=== PATIENT | female | born 1935 | race Caucasian/White ===

== ENCOUNTER 2017-09-09 11:09 | Inpatient (IN) | payer MEDICARE ==
[~2017-09-09] VITALS: Ht 160 cm; Wt 79.5 kg
[2017-09-09] VITALS (21 sets, daily range): BP systolic 72–118; BP diastolic 37–89
[~2017-09-09 11:09] MED LIST: CIPRO500 MG OR; DIGITEK0.25 MG OR; DOXYCYC MONO100 MG OR; ENALAPRIL10 MG OR
--- NOTE | 2017-09-09 11:30 | NUR ---
PATIENT TO ROOM VIA WHEELCHAIR AND PHYSICIAN AT BEDSIDE FOR EVALUATION
[2017-09-09 11:56] LABS: HEMATOCRIT 41.6 % (37.0-47.0); HEMOGLOBIN 12.5 g/dl (12.0-16.0); MEAN CELL VOLUME 95.2 fL CALC (80.0-100.0); MEAN CORPUSCULAR HGB 28.6 pG CALC (26.0-32.0); NEUT# 9.24 thou/uL (2.00-7.15); RED BLOOD COUNT 4.37 mill/uL (4.20-5.60); RED CELL DISTRI WIDTH 14.2 % (11.5-15.5)
[2017-09-09 12:33] LABS: ALBUMIN 3.7 g/dL (3.2-5.0); BILIRUBIN, TOTAL 0.6 mg/dL (0.0-1.4); CALCIUM 8.7 mg/dL (8.4-10.2); CREATININE 1.1 mg/dL (0.5-1.0); POTASSIUM 4.7 mmol/l (3.5-5.1); TOTAL PROTEIN 6.7 g/dL (6.3-8.2)
--- NOTE | 2017-09-09 13:10 | NUR ---
PT RETURNED FROM RADIOLOGY AWAITING CT RESULTS. BI PAP CONTINUES.
--- NOTE | 2017-09-09 14:20 | NUR ---
PT INTUBATED 7.5 24 AT LIP POSITIVE COLOR CHANGE.
--- NOTE | 2017-09-09 15:00 | NUR ---
BP 84/54 PT IN [place]. PROPOFOL STOPPED. ORDER FOR NOREPINEPHRINE RECD
--- NOTE | 2017-09-09 15:04 | NUR ---
SBAR PRINTED TO FLOOR
--- NOTE | 2017-09-09 16:16 | NUR ---
S: MELITON STUBBS is a 82 F who presents with acute respiratory failure She has a history of HTN, Irregular heartbeat, hard of hearing, lung CA, Afib. All medications in patient's chart were reviewed. O: VS: BP 149/70, P 89, RR 26,T 98.4 W 45.5kg, HT 58 inch, Scr= 1.1,CrCl= 40 ml/min A: P: Patient is on Aztreonam 1 gram IV q8h. Vancomycin ordered for pharmacy to dose. Start Vancomycin 1.25 gram IV Q24H at 16:30. Vancomycin trough is drawn before the 4th dose on 09/12/2017 at 16:00 Vancomycin goal trough is between 10-15 mcg/ml. Pharmacy will follow and or advise on antibiotics use as needed.
--- NOTE | 2017-09-09 16:34 | NUR ---
PT REMAINS ON PROPOFOL AND LEVOPHED PT SUPINE. BP STABILIZED AT 111/71 SYSTOLIC THRESHOLD >100. INTUBATION CONTINUES.
--- NOTE | 2017-09-09 17:17 | NUR ---
PT TO ICU VIA STRETCHER. IV SITE TO PORT AND RAC PATENT. LEVOPHED/PROPOFOL/VANCO/FLUIDS CONTINUED. PT INTUBATED AND BAGGED.
--- NOTE | 2017-09-09 17:45 | NUR ---
PT ARRIVED TO THE FLOOR WITH 2 PERSON ASSISTANCE FROM THE ER AND RT. FOR AIRWAY MAINTENANCE. PT ASSISTED WITH 4 PERSON ASSISTANCE, VENT SETTINGS SEE RT LOG. PT IS AWAKE AND LOOKING AROUND. BP 96/66 SPO2 IS 100%. LEVOPHED AND NS INFUSING THROUGH CHESTWALL PORT. DIPROVAN INFUSING THROUGH RFA #22. PT HAS NO FAMILY AT BS AT THIS TIME. PT PLACED IN SOFT RESTRAINTS, LEFT ARM IS SWOLLEN WITH PICTURE TAKEN IN THE ER. FINGERS ARE SWOLLEN ALSO AND BLUE/WILSON. NOT A KNEW FINDING. RAMIREZ CATHETER DRAINING DARK YELLOW URINE THAT IS CONCENTRATED.
--- NOTE | 2017-09-09 18:00 | NUR ---
ORAL GASTRIC TUBE PLACED AT THIS TIME, 12 PRYDEINIG, AUSCILATED WITH POSITIVE GASTRIC SOUNDS, NO ASPIRATE AT THIS TIME WITH SYRINGE. PLACED ON LIWS. PT HOB AT 30 DEGREES. PT AWAKE AND LOOKING AROUND. PROPOFOL INFUSING AT 15 MCG/KG/HR. LEVOPHED @ 4MCG/LG/HR, NS @ 150CC/HR.
--- NOTE | 2017-09-09 18:50 | NUR ---
FAMILY AT DESK, ABLE TO OBTAIN HISTORY FROM FAMILY. FAMILY DENIES LIVING WILL. WHEN ASKED SON (NEXT OF KIN) OF WISHES FOR PT IF HER HEART SHOULD STOP BEATING, WHAT TYPE OF INTERVENTION SHOULD STAFF PERFORM. PER SON "WE WANT EVERYTHING DONE FOR HER, DO WHAT YOU HAVE TO DO TO TRY AND SAVE HER." SON AND [id number] RE-ASSURED THAT EVERY ATTEMPT TO SAVE PATIENT WOULD BE PROVIDED, AND THEY WOULD BE NOTIFIED IF ANY DECLINE IN EVENTS HAPPENED. FAMILY STATES UNDERSTANDING.
[2017-09-09 18:52] LABS: URINE BILIRUBIN - DIPSTICK NEGATIVE (NEGATIVE); URINE BLOOD DIPSTICK TRACE-INTACT (NEGATIVE); URINE COLOR YELLOW; URINE GLUCOSE - DIPSTICK NEGATIVE (NEGATIVE); URINE KETONE NEGATIVE (NEGATIVE); URINE LEUK ESTERASE NEGATIVE (NEGATIVE); URINE NITRITE - DIPSTICK NEGATIVE (Negative); URINE PROTEIN - DIPSTICK 100 mg/dL (NEG-TRACE); URINE SPECIFIC GRAVITY >=1.030; URINE UROBILINOGEN - DIPSTICK 0.2 E.U./dL (0.2)
[2017-09-09 19:06] LABS: URINE CLARITY SL CLOUDY
[2017-09-09 19:07] LABS: URINE AMORPH SEDIMENT MANY hpf (NONE-FEW); URINE RBC 0-2 RBC/hpf (0-5); URINE SQUAMOUS EPITHELIAL CELL FEW EPI/hpf (0-FEW)
--- NOTE | 2017-09-09 19:33 | NUR ---
admission assessment completed at this time; medical hx/information obtained from Ivory (daughter in law) and Juanjo (son); pt noted moderately sedated; arousable to touch/opens eyes when repositioned; pupils reactive; no s/s of pain noted/ no facial grimaces; resp unlabored/ vent; AC mode, 400 TV, 24 rate, 5.0 peep, 60% o2; lungs coarse throughout; skin color wnl; suctioned orally for clear secretions; hr irreg; afib/pvc on monitor; rate noted to drop as low as 38 with spont return to 50s; weak left radial pulse; doppler pedal pulses; 2+ edema noted to ble; generalized edema noted to lower torso, left arm; abd soft/distended with bs present/hernia noted; pino to gravity draining cloudy yellow urine; urometer placed; no bm noted per development writer; og intact to lis; right chest port accessed with ns infusing as per orders/ levophed at 5mcg/min; #22 in rfa patent with diprivan 15mcg/kg/min; no redness or edema noted at sites; fungal rash noted under bilat breast/worse to left breast; wound to coccyx; wound noted to left post arm; see pics on chart; oral care with toothette; scd's placed; repositioned to right side; will continue to monitor
--- NOTE | 2017-09-09 19:55 | NUR ---
bp 72/58, hr 58; levophed titrated as per protocol; will continue to monitor
--- NOTE | 2017-09-09 20:05 | NUR ---
sedated; vent maintained; afib 50s on monitor with occasional drop to low 40s; manual bp 80/52; levophed titrated to 7mcg/min; will continue to monitor closely
--- NOTE | 2017-09-09 21:50 | NUR ---
# 22 started in rfa X 1 attempt for abt therapy; flushed and patent; pt repositioned to left side; oral care with toothette; afib/pvc 50s on monitor; vent maintained with prev settings; o2 sat 100%; will continue to monitor
--- NOTE | 2017-09-09 22:00 | NUR ---
DR Leroy notified per this food writer of bradycardia; MD informed pt afib 40-50s with lowest rate 38; MD informed no IVF ordered; orders/meds reviewed; orders to be placed per MD
--- NOTE | 2017-09-09 22:20 | NUR ---
RT Ochoa notified of Dr Leroy's request to titrated FIO2 down; will continue to monitor
--- NOTE | 2017-09-09 22:45 | NUR ---
FiO2 .28; o2 sat 99%; will continue to monitor
--- NOTE | 2017-09-09 23:50 | NUR ---
Dr Dacosta called this music writer; update given; informed of recent orders per Dr Leroy;
[2017-09-10] VITALS (98 sets, daily range): BP systolic 74–166; BP diastolic 39–81
--- NOTE | 2017-09-10 00:02 | NUR ---
pt lightly sedated; no distress noted; vent maintained; resp unlabored; o2 sat 99%; iv patent; no redness or edema noted at site; diprivan cont at 15mcg/kg/min; levophed cont at 7mcg/min; pino to gravity draining clear yellow urine; restraints released for nursing care and repositioning; pt repositioned to right side; oral care given; scd's intact; will continue to monitor
--- NOTE | 2017-09-10 01:01 | NUR ---
pt noted in junctional rhythm, hr 46 on monitor
--- NOTE | 2017-09-10 01:12 | NUR ---
isai Dodson called this time; passcode verified; update provided
--- NOTE | 2017-09-10 02:05 | NUR ---
lightly sedated; vent maintained; pino to gravity draining well; iv patent; diprivan at 25mcg/kg/min; levophed cont at 3 mcg/min; no redness or edema noted at sites; repositioned to left side; oral care given; scd's intact; restraints released for nursing care/rom and reapplied; will continue to monitor
--- NOTE | 2017-09-10 02:30 | NUR ---
bp 79/44; levophed titrated; diprivan decreased;
--- NOTE | 2017-09-10 02:51 | NUR ---
idioventricular rhythm on monitor; hr 44;
--- NOTE | 2017-09-10 03:55 | NUR ---
orders received from Dr Leroy to draw am labs d/t rhythm changes
--- NOTE | 2017-09-10 04:05 | NUR ---
resting with eyes closed; am labs obtained as per MD orders; afib/pvc on monitor; hr 42; pino to gravity; levophed cont at 6mcg/min; diprivan cont at 15 mcg/kg/min; no redness or edema noted at site; restraints released and reapplied after nursing care; repositioned to right side; vent maintained; will continue to monitor
[2017-09-10 04:31] LABS: ANION GAP 11 (6-22 (CALC)); BUN 46 mg/dL (8-23); BUN/CREATININE RATIO 58 (12-20 (CALC)); CALCIUM 8.2 mg/dL (8.4-10.2); CARBON DIOXIDE 28 mmol/l (22-30); CHLORIDE 105 mmol/l (95-108); CREATININE 0.8 mg/dL (0.5-1.0); GFR > 60 ML/MIN (>=60 (CALC)); GFR FOR AFR.AMER. > 60 ML/MIN (>=60 (CALC)); GLUCOSE 171 mg/dL (82-115); MAGNESIUM 2.2 mg/dL (1.6-2.3); POTASSIUM 3.5 mmol/l (3.5-5.1); SODIUM 140 mmol/l (137-146)
--- NOTE | 2017-09-10 05:05 | NUR ---
xray at bedside
[2017-09-10 05:19] LABS: HEMATOCRIT 33.5 % (37.0-47.0); HEMOGLOBIN 10.9 g/dl (12.0-16.0); MEAN CELL VOLUME 89.6 fL CALC (80.0-100.0); MEAN CORPUSCULAR HGB 29.1 pG CALC (26.0-32.0); MEAN CORPUSCULAR HGB CONC 32.5 g/L CALC (32.0-36.0); RED BLOOD COUNT 3.74 mill/uL (4.20-5.60)
--- NOTE | 2017-09-10 05:20 | NUR ---
weaning of Levophed in progress; diprivan titrated to 10mcg/kg/min for target Rass of 0 as per MD request; pt remains lightly sedated/ easily aroused with periods of restlessness
--- NOTE | 2017-09-10 06:07 | NUR ---
resting with eyes closed; resp unlabored; vent maintained; o2 sat 100%; pino to gravity; afib/pvc 50s on monitor; iv's patent; no redness or edema noted at sites; levophed weaned as per orders; trinidad-synphrine infusing at 0.5mcg/kg/min; diprivan at 10mcg/kg/min; repositioned to left side; hob elevated; og clamped d/t potassium administation; bed in lowst position;
--- NOTE | 2017-09-10 07:25 | NUR ---
PT RESTING IN BED, INTUBATED / SEDATED SEE FLOWSHEET FOR DETAILS, SEDATION IS MAINTAINED WITH RASS SCALE OF 0, LUNGS COARSE WITH COPIUS CLEAR ORAL SECRETIONS NOTED, ORAL CARE PROVIDED, RT REPOSITIONED TUBE EARLIER, TO PREVENT MUCOUSAL BREAKDOWN. ABDOMINAL HERNIA NOTED, WITH ACTIVE BS, OG TO LIS (CLAMPED AT THIS TIME R/T MEDICATION ADMINISTRATION) SKIN IS DRY WITH SCALY PATCHES UNDER BREASTS, IN EARS, IN GROIN FOLDS, PT BATHED AND SKIN CLEANSED WELL AND PATTED DRY, PT ALSO HAS INVERTED NIPPLE NOTED ON R BREAST, RAMIREZ INTACT DRAINING CLEAR YELLOW URINE IN ADEQUATE AOUNTS, CATH STRAP SECURE, TELE READING A FIB RATE 60'S PT ON DIPROVAN FOR SEDATION WITH RASS OF 0 PT OPENS EYES WITH MINIMAL STIMULI, SOFT WRIST RESTRAINTS IN PLACE BILATERALLY TO PREVENT SELF EXTUBATION, COMFORT MEASURES PROVIDED, WILL BATH AND CHANGE LINENS, CALL ANAND WITHIN REACH, EASILY VISIBLE FROM NURSES STATION FOR SAFETY, WILL CONTINUE TO MONITOR.
--- NOTE | 2017-09-10 08:15 | NUR ---
NG BACK TO LIS, PT BATHED AND LINENS CHANGED ORAL CARE PROVIDED AND PT REPOSIONED, SCD'S REMAIN ON DEYVI;ATERAL LE, AND BILATERAL HEELS ELEVATED FOR PRESSURE OFFLOADING, TELE CONTINUES TO READ A FIB RATE FLUCAUATES FROM 36-60'S, NOTIFIED, BP MAINTAINED ON NEOPYNEPHRINE GTT, O2 SATS MAINTAINED VIA VENT SEE FLOWSHEET FOR SETTINGS, CALL ANAND WITHIN REACH, WILL CONTINUE TO MONITOR.
[2017-09-10] MEDS ORDERED: ASPIRIN ADULT L81 M2 PO (08:36)
[2017-09-10] MEDS ORDERED: ESCITALOPRAM OX10 MG PO (08:37)
[2017-09-10] MEDS ORDERED: FENTANYL50 MCG/HR TD (08:37)
[2017-09-10] MEDS ORDERED: LORTAB 5/3255 MG PO (08:37)
[2017-09-10] MEDS ORDERED: DIGOXIN0.125 MG PO (08:38)
[2017-09-10] MEDS ORDERED: LISINOPRIL10 MG PO (08:38)
[2017-09-10] MEDS ORDERED: MAXZIDE-25MG1 COMBO PO (08:38)
--- NOTE | 2017-09-10 09:20 | NUR ---
SPOKE WITH VIA PHONE
--- NOTE | 2017-09-10 09:20 | NUR ---
DR.RAJIHA BECKETT OF BRADYCARDIA RATE 35-45
--- NOTE | 2017-09-10 10:13 | NUR ---
FAMILY AT BEDSIDE SPOKE WITH THEM REGARDING CURRENT STATUS, AND POTENTIAL TRANSFER TO [facility], THEY ARE AWARE DECISION HAS NOT BEEN MADE YET. ALL QUESTIONS ANSWERED.
--- NOTE | 2017-09-10 11:00 | NUR ---
PT RESTING, NO CHANGES NOTED, TELE READING A FIB RATE 36-50'S WITH SUSTAINED PERIODS OF 36-40 HR, BP STABLE WITH NEOSYNEPHRINE, RESTRAINTS REMAIN IN PLACE TO PREVENT SELF EXTUABTION, REMAINS SEDATED WELL WITH RASS SCORE OF 0, CALL ANAND WITHIN REACH, EASILY VISIBLE FROM NURSES STATION FOR SAFETY
--- NOTE | 2017-09-10 11:53 | NUR ---
PT RESTING, REPOSITIONED, FAMILY MEMBERS REMAIN AT BEDSIDE, IVF, NEOSYNPHRINE AND DIPROVAN CONTINUE ORDERED, CALL ANAND WITHIN REACH, CONTINUES TO HAVE GOOD URINE OUTPUT, CATH STRAP SECURE, SCD'S ON BILATERALLY, TELE CONTINUES READING A FIB RATE 35-50'S, WILL CONTINUE TO MONITOR.
--- NOTE | 2017-09-10 13:00 | NUR ---
FAMILY AT BEDSIDE USING DRY ERASE BOARD BROUGHT FROM HOME, PT DOES APPEAR TO RESPOND APPROPRIATELY WITH FACIAL EXPRESSIONS, AND NODS, VS STABLE CONTINUES ON DIPROVAN, NEOSYNEPHRINE AND IVF, CALL ANAND WITHIN REACH.,
--- NOTE | 2017-09-10 14:17 | NUR ---
PT RESTING WITH EYES CLOSED TELE CONTINUES TO READ A FIB RATE FLUCUATES 36-65, BP MAINTAINED WITH NEOSYNEPRHINE GTT, WILL CONTINUE TO MONITOR
--- NOTE | 2017-09-10 14:43 | NUR ---
CONTINUE TO WEAN NEOSYNEPRHINE, BP MAINTAINED SEE INTERVENTIONS, RESTRAINTS REMAIN IN PLACE TO PREVENT SELF EXTUBATION.
--- NOTE | 2017-09-10 16:07 | NUR ---
PT RESTING, REPOSITIONED FOR COMFORT, CONTINUES TO HAVE COPIUS CLEAR ORAL SECRETIONS, BILATERAL HEELS ELEVATED
--- NOTE | 2017-09-10 17:22 | NUR ---
PT RESTING, REPOSITIONED, ORAL SECRETIONS CONTINUE, GOWN CHANGED AND SKIN CARE PROVIDED, WILL CONTINUE TO MONITOR, NO BM THIS SHIFT, RAMIREZ INTACT CONTINUES TO HAVE GENERALZED EDEMA, CALL ANAND WITHIN REACH
--- NOTE | 2017-09-10 17:58 | NUR ---
FAMILY MEMBERS BACK AT BEDSIDE, BP MAINTAINED, HR CONTINUES TO FLUCUATE 46-60, WILL CONTINUE TO MONITOR.
--- NOTE | 2017-09-10 19:00 | NUR ---
pt sedated; family at bedside; updated on plan of care/ pt condition; will continue to monitor
--- NOTE | 2017-09-10 20:00 | NUR ---
assessment completed at this time; pt sedated but arousable; no distress noted; no s/sx of pain; resp unlabored; vent intact with settings of: AC, 400 TV, 20 rate, 5 peep, 28% FiO2; lungs coarse; skin color wnl; o2 sat 100%; orally and ET suctioned per RT; hr irreg; strong pulses; 2+ edema noted to ble/left arm/hips/torso; afib/pvc 40s on monitor; abd soft/distended with bs present; no bm noted per service writer; og intact to lis with greenish/brown gastric contents noted; oral care with toothette; large amount of clear secretions noted; pino to gravity draining clear yellow urine; cath strap intact; pino care performed; right chest port accessed with LR infusing as per orders/ trinidad-synepherine at 15mcg/min (0.375mcg/kg/min); #22 in rfa with diprivan infusing at 20mcg/kg/min; #22 in rfa saline locked; all sites flushed and patent; no redness or edema noted; dressing cdi to left post arm; 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
--- NOTE | 2017-09-10 20:06 | NUR ---
PATIENT RECEIVED AT 1815 INTUBATED WITH A TUBE 7.5 AT 23 CM AT THE LIPS. LISTENING TO THE PATIENT BREATH SOUND. IT WAS RHONCHI. SUCTIONED FOR LARGE AMOUNT OF THICK SECRETION CLEAR. ET TUBE STAYS AT MIDLINE OF THE PATIENT [facility]. WILL CONTINUE TO MONITOR THE PATIENT THROUGHTOUT THE SHIFT.
--- NOTE | 2017-09-10 22:00 | NUR ---
sedated; no distress noted; vent maintained; iv's patent; no redness or edema noted at site; afib/pvc 45 on monitor; diprivan and trinidad synepherine continued; pino to gravity; repositioned to right side; oral care performed; all extremities elevated; will continue to monitor
--- NOTE | 2017-09-10 22:25 | NUR ---
Dr Leroy notified in regards to restraint renewal; orders to be placed
[2017-09-11] VITALS (70 sets, daily range): BP systolic 87–139; BP diastolic 43–79
--- NOTE | 2017-09-11 00:01 | NUR ---
pt noted with brief increase in hr (70s) and bp; in to assess pt; pt noted wide awake when staff enters room; slightly anxious/shaking feet and nodding head; diprivan titrated as per protocol to maintained RASS of 0; afib/pvc on monitor; vent maintaind as per previous settings; repositioned to left side; oral care given; pino to gravity; iv's patent; lip balm applied; will continue to monitor
--- NOTE | 2017-09-11 02:00 | NUR ---
resting calmly; no distress noted; vent maintained; pino to gravity; iv patent; propofol and trinidad synepherine cont; repositioned to left side; oral care; og intact; extremities floated; afib 40-50s on monitor; will continue to monitor
--- NOTE | 2017-09-11 04:00 | NUR ---
resting with eyes closed; noted shaking feet; appears restless; no distress noted; vent intact and patent; o2 sat 99%; afib/pvc on monitor; pino to gravity; iv's patent; og intact and patent; repositioned to supine position; oral care performed; restraints released and reapplied for nursing care; will continue to monitor
--- NOTE | 2017-09-11 05:05 | NUR ---
am labs obtained via port
--- NOTE | 2017-09-11 05:30 | NUR ---
pt resting with eyes closed; arousable; no distress noted; complete bed bath, pino care, linen change and oral care completed; repositioned for comfort; afib 42 on monitor; pino to gravity; vvent maintained;
[2017-09-11 05:34] LABS: ANION GAP 9 (6-22 (CALC)); BUN 32 mg/dL (8-23); BUN/CREATININE RATIO 53 (12-20 (CALC)); CALCIUM 7.7 mg/dL (8.4-10.2); CARBON DIOXIDE 26 mmol/l (22-30); CHLORIDE 110 mmol/l (95-108); CREATININE 0.6 mg/dL (0.5-1.0); GFR > 60 ML/MIN (>=60 (CALC)); GFR FOR AFR.AMER. > 60 ML/MIN (>=60 (CALC)); GLUCOSE 138 mg/dL (82-115); MAGNESIUM 2.2 mg/dL (1.6-2.3); POTASSIUM 3.9 mmol/l (3.5-5.1); SODIUM 142 mmol/l (137-146)
[2017-09-11 05:41] LABS: MEAN CORPUSCULAR HGB 28.8 pG CALC (26.0-32.0); MEAN CORPUSCULAR HGB CONC 32.4 g/L CALC (32.0-36.0); RED BLOOD COUNT 3.82 mill/uL (4.20-5.60); RED CELL DISTRI WIDTH 14.3 % (11.5-15.5)
--- NOTE | 2017-09-11 06:04 | NUR ---
resting with eyes closed; vent intact and patent; o2 sat 99%; hob elevated; afib 40s on monitor; pino to gravity; og intact; bilat scd's; iv patent; trinidad-synepherine gtt cont/ diprivan gtt cont; increased redness noted to back during bath/no breakdown to back noted; bed in lowest position;
--- NOTE | 2017-09-11 06:37 | NUR ---
hr sustained 34-39; carotid pulse palpated; diprivan titrated to 25mcg/kg/min; bp 98/43
--- NOTE | 2017-09-11 07:25 | NUR ---
PT RESTING IN BED, REMAINS INTUBATED / SEDATED SEE FLOWSHEET FOR DETAILS, SEDATION IS MAINTAINED WITH RASS SCALE OF -1, -2, LUNGS COARSE WITH COPIUS CLEAR ORAL SECRETIONS NOTED, ORAL CARE PROVIDED, SOME CRACKING NOTED ON LOWER LIP, LIP BALM APPLIED, ABDOMINAL HERNIA NOTED NOT NEW PER FAMILY , LAST BM 09/09/17 PER ADMISSION, PT HAS ACTIVE BS, OG TO LIS WITH MINIMAL ORANGE/BROWN DRAINAGE OUT, SKIN REMAINS DRY WITH SCALY PATCHES UNDER BREASTS, IN EARS, IN GROIN FOLDS, PT BATHED ON PREVIOUS SHIFT PER REPORT, PT ALSO HAS INVERTED NIPPLE NOTED ON R BREAST, RAMIREZ INTACT DRAINING CLEAR YELLOW URINE IN ADEQUATE AMOUNTS, CATH STRAP SECURE, TELE READING A FIB RATE 40'S SUSTAINED AT AT TIMES IN 30'S ( AWARE NOTIFIED BY THIS NURSE ON 09/10/17) LABIAL EDEMA NOTED, SOFT WRIST RESTRAINTS IN PLACE BILATERALLY TO PREVENT SELF EXTUBATION, COMFORT MEASURES PROVIDED, CALL ANAND WITHIN REACH, EASILY VISIBLE FROM NURSES STATION FOR SAFETY, WILL CONTINUE TO MONITOR.
--- NOTE | 2017-09-11 08:20 | NUR ---
PT HR 36 SUSTAINED FOR SHORT PERIODS OF TIME, BP REMAINS STABEL WTIH NEOSYNEPHRINE AT SAME RATE, DIPROVAN REMAINS AT 20 MCG/KG/MIN, SCD'S ON BILATERALLY, IVF CONTINUE, IMPLANTED PORT INTACT IN RIGHT CHEST WALL WITH DRESSING CLEAN DRY AND INTACT.
--- NOTE | 2017-09-11 09:38 | NUR ---
[facility] FAMILY CALLED FOR UPDATE, NO TOHER CHANGES NOTED, URINE OUTPUT MINIMALLY DECREASED, MD AWARE WILL CONTINUE TO MONITOR
--- NOTE | 2017-09-11 09:58 | NUR ---
PT REPOSITIONED FOR COMFORT, FLINCHES WITH MOVEMENT, RESTRAINTS REMAIN IN PLACE TO PREVENT SELF EXTUBATION, CALL ANAND WITHIN REACH, EASILY VISIBLE FROM NURSES STATION FOR SAFETY
--- NOTE | 2017-09-11 10:57 | NUR ---
IN TO SEE PATIENT, AWARE ON CONTINUED SUSTAINED BRADYCARDIA, AND DECREASED URINE OUTPUT WELL INCREASED EDEMA, IVF DECREASED TO KVO PER VERBAL ORDER, CONTINUE TO MONITOR.
--- NOTE | 2017-09-11 12:22 | NUR ---
REPOSITIONED AND MOUTH CARE PROVIDED, SON AT BEDSIDE AT THIS TIME, NEOSYNEPHRINE TITRATED WILL MONITOR TOLERANCE, BILATERAL ARMS/HANDS ELEVATED FOR EDEMA.
--- NOTE | 2017-09-11 14:03 | NUR ---
PT REMAINS SEDATED, BP STABLE WITH MAP MAINTAINED GREATER THAN 65 WITH NEOSYNEPHRINE TITRATION, HR STILL FLUCTUATING CURRENLTY 40'S, SON GONE AT THIS TIME, URINE OUTPUT REMIANS DECREASED, EASILY VISIBLE FROM NURSES STATION, WILL CONTINUE TO MONITOR.
--- NOTE | 2017-09-11 15:15 | NUR ---
PT RESTING, URINE OUTPUT REMAINS POOR, REPOSITIONED AND HEELS ELEVATED, SCD'S REMAIN IN USE, CALL ANAND WITHIN REACH.
--- NOTE | 2017-09-11 16:15 | NUR ---
NO CHANGES NOTED, PT REMAINS LIGHTYL SEDTAED, RESTRAINTS REMAIN IN USE TO PREVENT SELF EXTUBATION, CALL ANAND WITHIN REACH
--- NOTE | 2017-09-11 17:26 | NUR ---
PT RESTING, REPOSITIONED FRO COMFORT, NO S/S OF DISTRESS NOTED, REPSONDS TO TACTILE STIMULATION BUT NODS OFF EASILY, TOLERATING ETT WITHOUT INCIDENT, NOTIFIED OF CONTINUED POOR URINE OUTPUT, EASILY VISIBLE FROM NURSES STATION FOR SAFETY, WILL CONTINUE TO MONITOR.
--- NOTE | 2017-09-11 18:41 | NUR ---
SON AT BEDSIDE, DOMINICK ORDERED, CALL ANAND WITHIN REACH
--- NOTE | 2017-09-11 19:30 | NUR ---
RECEIVED REPORT FROM SETH TRIPATHI RN. SON IN ROOM AT 1845. INTRODUCED SELF TO PT BY WRITING ON A WHITE BOARD, PT OPENED EYES AND SMILE BACK, APPEARS CALM, NO DISTRESS NOTED, PT IS DEAF. PT LIGHTLY SEDATED WITH DIPRIVAN CURRENTLY AT 20MCG/KG/MIN INFUSING TO 22G RFA AND MARYLIN-SYNEPHRINE @ 10MCG/KG/MIN WITH LR AT KVO INFUSING TO RT CHEST PORT. HAS A 22G RIGHT WRIST SALINE LOCK, FLUSHES WELL, VSS, AFIB HR 56-70, AFEBRILE. EMPTIED 400CC OF CLEAR YELLOW URINE, FROM RAMIREZ CATH, LEG STRAP IS IN PLACE, PT RESPONDS TO STIMULI, OPENS EYES TO STIMULATION, NODS "NO" WHEN ASKED IF IN PAIN. GENERALIZED EDEMA, MORE PROMINENT TO BILAT UPPER AND LOWER EXTREMETIES, BILAT LOWER AND UPPER EXTRE ELEVATED WITH A PILLOW. ON VENTILATOR (A/C, TV 400, R 16, PEEP 5, FIO2 28%), OGT TO LIWS, DRAINING SCANTS AMOUNTS OF GREEN/BILE ABDOMINAL CONTENTS, NOTIFIED PLACEMENT BY AUSCULTATION, SCD'S ARE IN PLACE. ABD IS SOFT/SLIGHTLY DISTENDED, ACTIVE BM X4QUAD, LUNGS ARE CLEAR ON AUSCULTATION WITH DIMINISHED BIBASILAR, STRONG IRREGULAR RADIAL AND PEDAL PULSES, SKIN IS WARM/DRY/ACYANOTIC, DRESSING CDI NOTED TO LEFT ELBOW, PINK/RED SKIN TO LT LOWER ABD, SCALY/CRUSTY WHITE SKIN UNDER LT BREATS, PRESSURE ULCER STAGE II TO COCCYX/INNER BUTTOCK, SEE PICTURES IN CHART, BILAT SOFT RESTRAINTS IN PLACE, EXPLAINED PT AND SON SAFETY MEASURES AND PLAN OF CARE SON VOICES UNDERSTANDING AND PT SMILES AND OPENS AND CLOSES EYES. SOFT BILT WRIST RESTRAINTS IN PLACE, RELEASED THEM FOR PASSIVE ROM EXERCISES, VERY WEAK HAND PRESSING DEPARTMENT SUPERVISOR TO LEFT HAND, ABSENT PRESSING DEPARTMENT SUPERVISOR TO RT HAND. SON STATES PT IS LEGALLY DEAF SINCE ABOUT 6 YRS AGO, STATES PT LIVES WITH HIM STATES BEFORE ADMISSION "SHE WAS AMBULATORY WITH A WALKER, SHORT DISTANCE."
--- NOTE | 2017-09-11 21:33 | NUR ---
MEDICATED PT WITH LOVENOX, REACTED TO INJECTION, OPENS EYES TO PAIN AND PHYSICAL STIMULATION, APPEARS CALM, NO DISTRESS NOTED, MONITOR SHOWS AFIB WITH OCC PVC'S, HR 50-65, BP 122/52, SPO2 100%, RR 22, ON VENT, DIPRIVAN AND MARYLIN-SYNEPHRINE INFUSING PER PROTOCOL, EMPTIED 1000CC CLEAR YELLOW URINE, REPOSITIONED FOR COMFORT TO LET SIDE, PILLOWS ELEVATING BILAT EXTR, NOTED SCANT BM, BRANDT COLOR, SOFT, CHANGED UNDERPADS, PROVIDED ORAL CARE WITH YANKAUER, AND GLYCERINE SWABS, APPLIED MOISTURIZER TO LIPS, SOFT BILAT WRIST RESTRAINTS RELEASED TO REPOSITION PT AND PERFOMED PASSIVE ROM EXERCISES, PT TOLERATED ACTIVITY WELL, WILL MONITOR CLOSELY.
--- NOTE | 2017-09-11 23:12 | NUR ---
RT IN PT ROOM, CHECKING VENT SETTINGS, AND PERFOMING TRACHEAL SUCTIONING, PT TOLERATING ACTIVITY WELL.
--- NOTE | 2017-09-11 23:48 | NUR ---
PT MAINTAINING RASS SCALE 0, APPEARS CALM, OPENED EYES WHEN REPOSITIONED TO RT SIDE, NO DISTRESS NOTED, VSS, CONTINUE AFIB ON MONITOR, HR 58-76, VENT SETTINGS MAINTAINED PREVIOUSLY, MARYLIN-SYNEPHRINE MAINTAINED AT 10MCG/KG/MIN AND DIPRIVAN AT 20MCG/KG/MIN WITH LR @ KVO, IV SITES ARE INTACT, FREE OR REDNESS OR EDEMA, RAMIREZ DRAINING BY GRAVITY CLEAR YELLOW URINE, EMPTIED 800CC AT THIS TIME, REPOSITIONED FOR COMFORT TO RT SIDE, TOLERATED ACTIVITY WELL, INSTRUCTED BY WRITING ON WHITE BOARD TO OPEN AND CLOSE EYES TWICE IF HAVING PAIN, AND OPEN AND CLOSE EYES ONCE IF NO PAIN, PT OPENED EYES AND CLOSED ONLY ONE TIME, ORAL CARE PROVIDED, LUBRICATED LIPS, ORAL SUCTION WITH YAKAUER PROVIDED. SCD'S IN PLACE.
[2017-09-12] VITALS (32 sets, daily range): BP systolic 81–147; BP diastolic 42–79
--- NOTE | 2017-09-12 01:04 | NUR ---
RT, KAYLENE, CHECKING VENT SETTINGS. NOTICED OGT DRAINING SCANT AMOUNTS OF RED DRAINAGE AT THIS TIME, PT APPEARS CALM, NO DISTRESS NOTED, VSS, RESP ARE EVEN AND UNLABORED, WILL CONTINUE TO MONITOR CLOSELY.
--- NOTE | 2017-09-12 01:59 | NUR ---
REPOSITIONED FOR COMFORT, MAINTAINING RASS SCORE AT ZERO, PT APPEARS CALM, OPENS EYES TO PHYSICAL STIMULATION, VSS, AFIB WITH HR 58-70, DIPRIVAN AND MARYLIN-SYNEPHRINE MAINTAINED AT PREVIOUSLY GTT, IV SITES REMAIN PATENT, ORAL CARE PROVIDED WITH YANKAUER AND LIPS LUBRICATED, TOLERATED ACTIVITY WELL. WILL CONTINUE TO MONITOR CLOSELY.
--- NOTE | 2017-09-12 02:53 | NUR ---
REPOSITIONED TO LEFT SIDE, PILLOWS ELEVATING EXTRE, CHANGED LINENS, HAD A LARGE BM, LIQUID, BARNDT COLOR, PERINEAL/RAMIREZ CARE PROVIDED, PT RESPONDS TO STIMULATION, SOME FACIAL GRIMACE NOTED WHILE CHANGING BED AND REPOSITIONING, AND BITTING ON ETT, OPENED EYES WIDE, TITRATED UP DIPRIVAN FROM 20 TO 25MCG/KG/MIN WHILE CLEANING PT, WILL DECREASE AFTER PT APPEARS MORE COMFORTABLE AND STOPS BITTING ON ETT. WILL MONITOR CLOSELY.
--- NOTE | 2017-09-12 03:30 | NUR ---
DIPRIVAN TITRATED BACK TO 20MCG/KG/MIN. PT APPEARS CALM, STOPPED BITTING ETT, NO MORE FACIAL GRIMACE NOTED. RESP ARE EVEN AND UNLABORED. WILL CONTINUE TO MONITOR CLOSELY.
--- NOTE | 2017-09-12 04:17 | NUR ---
NO DISTRESS NOTED, AFIB ON MONITOR, HR 48-62 AT THIS TIME, AFEBRILE, NO FACIAL GRIMACE NOTED, RESPONDS TO PHYSICAL OR PAIN STIMULI, RESP ARE EVEN AND UNLABORED ON VETILATOR, SETTINGS HAS NOT CHANGED, DIPRIVAN GTT AT 20MCG/KG/MIN, MARYLIN-SYNEPHRINE REMAINS AT 10MCG/KG/MIN, LR AT 10ML/HR, IV SITES ARE PATENT, RAMIREZ CONTINUE DRAINING SMALL AMOUNTS OF CLEAR YELLOW URINE, REPOSITION PT FOR COMFORT, NO DISTRESS NOTED, WILL CONTINUE TO MONITOR CLOSELY.
--- NOTE | 2017-09-12 05:12 | NUR ---
KAYLENE CH IN PT ROOM DRAWING ABG'S, TRACHEAL SUCTION, AND ORAL SUCTIONING DONE BY RT AT THIS TIME AFTER ABG'S. CULVERT INSTALLER PREVIOUSLY DRAWN LABS FROM RIGHT CHEST PORT, FOUND 22G RFA (UPPER AREA) LEAKING, REMOVED, IV CATH INTACT, NO REDNESS OR EDEMA NOTED, STARTED A NEW IV 22G LFA (WRIST AREA), DIPRIVAN INFUSING TO NEW SITE AT 25MCG/KG/MIN. PT TOLERATED ACTIVITY WELL. REPOSITIONED FOR COMFORT. WILL CONTINUE TO MONITOR.
[2017-09-12 05:19] LABS: ANION GAP 11 (6-22 (CALC)); BUN 30 mg/dL (8-23); BUN/CREATININE RATIO 45 (12-20 (CALC)); CALCIUM 7.7 mg/dL (8.4-10.2); CARBON DIOXIDE 29 mmol/l (22-30); CHLORIDE 109 mmol/l (95-108); CREATININE 0.7 mg/dL (0.5-1.0); GFR > 60 ML/MIN (>=60 (CALC)); GFR FOR AFR.AMER. > 60 ML/MIN (>=60 (CALC)); GLUCOSE 129 mg/dL (82-115); POTASSIUM 3.2 mmol/l (3.5-5.1); SODIUM 146 mmol/l (137-146)
--- NOTE | 2017-09-12 05:37 | NUR ---
RADIOLOGIST TECH IN PT ROOM FOR CXR.
[2017-09-12 05:55] LABS: HEMATOCRIT 35.9 % (37.0-47.0); HEMOGLOBIN 11.4 g/dl (12.0-16.0); MEAN CELL VOLUME 90.9 fL CALC (80.0-100.0); MEAN CORPUSCULAR HGB 28.9 pG CALC (26.0-32.0); MEAN CORPUSCULAR HGB CONC 31.8 g/L CALC (32.0-36.0); RED BLOOD COUNT 3.95 mill/uL (4.20-5.60); RED CELL DISTRI WIDTH 14.5 % (11.5-15.5)
--- NOTE | 2017-09-12 06:30 | NUR ---
PT APPEARS CALM, RAAS MAINTAINED TO ZERO, RESP ARE EVEN AND UNLABORED, NO FACIAL GRIMACE NOTED, EMPTIED RAMIREZ AT THIS TIME, CANISTER TO 50ML AARTI, DARK RED DRAINAGE ON OGT, HOOKED TO LIWS. IVF INFUSING PER EMAR, DIPRIVAN AT 20MCG/KG/MIN, AND MARYLIN-SYNEPHRINE, AT 10MCG/KG/MIN INFUSING WITHOUT DIFFICULTY, ANTIBIOTIC (AZTREONAM) INFUSING AT THIS TIME WITHOUT DIFFICULTY, ORAL SUCTION WITH YANKAUER PROVIDED, LUBRICATED LIPS, REPOSITIONED FOR COMFORT, RELEASED BILAT SOFT RESTRAINS FOR PASSIVE ROM, MONITOR SHOWS AFIB, HR, 50-60, RESP ARE UNLABORED, NO FACIAL GRIMACE NOTED OR OTHER S/S OF DISTRESS, TOTAL STERILE SUPERVISOR OUTPUT 2600CC. NO BM NOTED, WILL MONITOR CLOSELY.
--- NOTE | 2017-09-12 06:33 | NUR ---
AFIB ON MONITOR, HR 38-55 AT THIS TIME. BP 94/55. SPO2 100%. WILL CONTINUE TO MONITOR.
--- NOTE | 2017-09-12 07:25 | NUR ---
PT RESTING IN BED, REMAINS INTUBATED / SEDATED SEE FLOWSHEET FOR DETAILS, SEDATION IS MAINTAINED WITH RASS SCALE OF -1, -2, LUNGS COARSE WITH COPIUS CLEAR ORAL SECRETIONS NOTED, ORAL CARE PROVIDED, SOME CRACKING NOTED ON LOWER LIP, LIP BALM APPLIED, ABDOMINAL HERNIA NOTED NOT NEW PER FAMILY, LARGE LOOSE BM LAST PM PER REPORT, PT HAS ACTIVE BS, OG TO LIS WITH MINIMAL GREEN/BROWN DRAINAGE OUT, SKIN REMAINS DRY WITH SCALY PATCHES UNDER BREASTS, IN EARS, IN GROIN FOLDS, PT PARTIALLY BATHED ON PREVIOUS SHIFT PER REPORT, PT ALSO HAS INVERTED NIPPLES NOTED, RAMIREZ INTACT DRAINING CLEAR YELLOW URINE IN ADEQUATE AMOUNTS, CATH STRAP SECURE, TELE READING A FIB RATE 50'S AT THIS TIME, HAS RECENT HISTORY OF HR SUSTAINED IN 30-40'S ( AWARE NOTIFIED BY THIS NURSE ON 09/10/17) GENERAL EXTREMITY AND LABIAL EDEMA NOTED WITH SLIGHT IMPROVEMENT OVER 09/11/17 NOTED, SOFT WRIST RESTRAINTS IN PLACE BILATERALLY TO PREVENT SELF EXTUBATION, COMFORT MEASURES PROVIDED, CALL ANAND WITHIN REACH, EASILY VISIBLE FROM NURSES STATION FOR SAFETY, WILL CONTINUE TO MONITOR.
--- NOTE | 2017-09-12 08:12 | NUR ---
INCONTINENT OF SMALL LOOST BRANDT/BROWN STOOL, PRABHU CARE PROVIDED, PT TOELRATED WELL, REPOSITIONED FOR COMFORT, OPENS EYES WITH TACTILE STIMULATION BUIT NODS OFF EASILY, WILL CONTINUE TO MONITOR
--- NOTE | 2017-09-12 09:05 | NUR ---
PT RESTING, POTASSIUMR RIDERS TO BE ADMINSTERED ORDERED FOR LOW K+ THIS AM, CONTINUES TO MAINTAIN BP WITH MAP>65 ON NEOSYNEPHRINE AT 10 MCG, DIPROVAN FOR SEDATION TOLERATED, CALL ANAND WITHIN REACH.
--- NOTE | 2017-09-12 09:43 | NUR ---
IN TO SEE PT, ATTEMPTS TO COMMUNICATE VIA [facility] (PT HEARING IMPAIRED) MINIMALLY SUCCESSFUL, PT NODS OFF EASILY WILL TITRATE SEDATION, CALL INTO FAMILY FOR (HE WOULD LIKE TO MEET WITH THEM) PER DAUGHTER IN LAW HEY[place] THEY WILL BE IN SHORTLY. AWARE.
--- NOTE | 2017-09-12 10:38 | NUR ---
PT REPOSITIONED FOR COMFORT, CONTINUE TO AWAIT FAMILY ARRIVAL TO SPEAK WITH NICOL GAINES REGARDING PLAN OF CARE
--- NOTE | 2017-09-12 10:57 | NUR ---
PRABHU CARE PROVIDED FOR STOOL INCONTINENCE, FAMILY AT BEDSIDE AND DR.RAJIHA WILLAMS.
--- NOTE | 2017-09-12 11:26 | NUR ---
SPOKE WITH FAMILY T LENGTH, THEY CONTINUE TO WANT EVERYTHING DONE, PLANNING TO TRASNFER
--- NOTE | 2017-09-12 12:33 | NUR ---
family leaving at this time, aware of planned transfer to [facility], consent for transfer obtained from son Juanjo, will continue to monitor.
--- NOTE | 2017-09-12 13:03 | NUR ---
SPOKE WITH ROOSEVELT MEREDITH AT [facility], BRIEF REPORT GIVEN FACE SHEET FAXED PER REQUEST, AWAITING BED ASSIGNMENT.
--- NOTE | 2017-09-12 14:42 | NUR ---
CONTINUE TO AWAIT BED PLACEMENT, PT RESTING NO CHANGES FROM PREVIOUS, VENT SETTINGS REMAIN UNCHANGED SATS REMAIN 100%, WILL CONTINUE TO MONITOR.
--- NOTE | 2017-09-12 15:14 | NUR ---
BED ASSIGNMENT REC'D ROOM 6351N ASSIGNED IS ACCEPTING MD AT [facility], DAUGHTER IN [employer] [place] AWARE OF BED ASSIGNMENT, WILL NOTIFY HER OF ETA, WHEN AVAILABLE
--- NOTE | 2017-09-12 17:15 | NUR ---
REPORT GIVEN TO ALYSHA AT [facility], AWARE OF ETA OF TRANSPORT 1800. DAUGHTER IN LAW [place] AWARE WELL.
--- NOTE | 2017-09-12 18:35 | NUR ---
PT INCONTINENT OF LARGE LOOSE STOOLE PRABHU CARE PROVIDED AND REPOSITIONED [facility] HERE FOR TRANSPORT TO [facility]. ORAL AND ETT TUBE SUCTIONED PT TOLERATED.
--- NOTE | 2017-09-12 19:09 | NUR ---
[facility] AT BEDSIDE FOR TRANSPORT TO [facility], [facility] AWARE OF ETA (SPOKE WITH SHANNON AND ALYSHA) LEFT UNTI VIA STRECTHER ON VENT WITH IVF AND DIPRIVAN AND NEOSYNEPRHINE GTTS. SON PETER NOTIFIED OF DEPARTURE AND ETA WELL.
== END 2017-09-12 19:10 | disposition short-term general hospital (02) | DRG 871 ==
LOC: ED 11:09 → ED-I 13:37 → ED 15:05 → ICU 15:06
PROVIDERS: Emergency Medicine; Internal Medicine; ADMIT Internal Medicine; ATTEND Internal Medicine
PROC: 0BH17EZ Insertion of Endotracheal Airway into Trachea, Via Natural or Artificial Opening (ICD-10-PCS; principal; 2017-09-09)
PROC: 5A1945Z Respiratory Ventilation, 24-96 Consecutive Hours (ICD-10-PCS; 2017-09-09)
PROC: 0T9B70Z Drainage of Bladder with Drainage Device, Via Natural or Artificial Opening (ICD-10-PCS; 2017-09-09)
DX: A41.9 Sepsis, unspecified organism (principal); R65.21 Severe sepsis with septic shock; J18.9 Pneumonia, unspecified organism; N17.9 Acute kidney failure, unspecified; C79.51 Secondary malignant neoplasm of bone; J96.02 Acute respiratory failure with hypercapnia; J96.01 Acute respiratory failure with hypoxia; C34.90 Malignant neoplasm of unspecified part of unspecified bronchus or lung; I48.2 Chronic atrial fibrillation; E87.70 Fluid overload, unspecified; D64.9 Anemia, unspecified; H91.90 Unspecified hearing loss, unspecified ear; R00.1 Bradycardia, unspecified; Z79.899 Other long term (current) drug therapy
CPT/HCPCS: J1650; J3370